=== PATIENT | female | born 1990 | race Caucasian/White ===

== ENCOUNTER 2018-11-25 10:50 | Inpatient (IN) | payer OTHER ==
[~2018-11-25] VITALS: Ht 162.6 cm; Wt 105.0 kg
[2018-12-07] MEDS ORDERED: ZANTAC150 MG PO (05:30)
[2018-12-07] MEDS ORDERED: VITAFOL-OB+DHA1 EACH PO (05:30)
[2018-12-07] MEDS ORDERED: VITAMIN D2000 UNIT PO (05:31)
--- NOTE | 2018-12-07 09:00 | NUR ---
12/07/18 0900 Bebe Miller 0844- PT ARRIVES TO [facility] ROOM 108 FROM OR ON RA WITH SATS 97%. RESP EVEN AND UNALBORED. PT AWAKE AND RESPONSIVE TO VERBAL STIMULUS AND FOLLOWS COMMANDS/ANSWERS QUESTIONS APPROPRIATELY. PT'S SPINAL LEVEL T8. FUNDUS FIRM WITH LIHT BLEEDING NOTED. SURGICAL DRESSING C/D/I. 9682- BABY SKIN TO SKIN ON MOMS CHEST. PT SIPS WATER AND DENIES NAUSEA. SPINAL LEVEL REMAINS AT T-8. FF @ U-1 WITH LIGHT BLEEDING.
--- NOTE | 2018-12-08 11:01 | PR ---
[facility] [address] [facility] [place], [place] [address] Signed PP Progress Notes Datetime Report Generated by CPN: 12/08/2018 11:01 SUBJECTIVE: [id number] Pain: Within normal limits Nausea/Vomiting: Denies Flatus: Yes Bowel Movement: No Vital Signs: [id number] Vital Signs: Reviewed; Within Normal Limits EXAM: [id number] Cardiovascular: Normal Respiratory: Normal Abdomen/Uterus: Normal Lochia: Normal Vulva/Perineum: Not Done Breasts: Normal CVA Tenderness: Normal Extremities: Normal Incision: Normal Progress: Normal Exam Comments: Fundus firm U-2 nontender. Incision well healing w/ alexandre in place IMPRESSION/PLAN/PROCEDURES: [id number] Impression: Normal progression Plan: Continue present management Progress Notes: Pt seen and examined. Doing well. Ambulating, voiding, and tolerating full diet. Pain and lochia minimal. No fevers/chills/lightheadedness. well. No other complaints. Continue routine postop care. Hgb 10.1 Signing Physician: Kali Quan DO Copies: ~ *Electronically Signed* 12/08/18 1101 KALI QUAN DO PATIENT NAME: JELLY SCHAFFER PROGRESS NOTE DATE OF : 86 PHYSICIAN: KALI QUAN DO RPT #: [id number] REPORT IS CONFIDENTIAL AND NOT TO BE RELEASED WITHOUT AUTHORIZATION
--- NOTE | 2018-12-09 08:39 | PR ---
[facility] [address] [place], [place] [address] Signed PP Progress Notes Datetime Report Generated by CPN: 12/09/2018 08:39 SUBJECTIVE: [id number] Pain: Within normal limits Nausea/Vomiting: Denies Flatus: Yes Bowel Movement: Yes Vital Signs: [id number] Vital Signs: Reviewed; Within Normal Limits EXAM: [id number] Cardiovascular: Normal Respiratory: Normal Abdomen/Uterus: Normal Lochia: Normal Vulva/Perineum: Not Done Breasts: Not Done CVA Tenderness: Normal Extremities: Normal Incision: Normal Progress: Normal Exam Comments: Fundus firm U-2 nontender. Incision healing well w/ alexandre in place IMPRESSION/PLAN/PROCEDURES: [id number] Impression: Normal progression Plan: Discharge Progress Notes: Pt seen and examined. Doing well. Ambulating, voiding, and tolerating full diet. Pain and lochia minimal. No fevers/chills/lightheadedness. well. No other complaints. Desires d/c home today. Hgb 10.1. Reviewed d/c instructions in detail. All questions answered. f/U 2 days for staple removal Signing Physician: Kali Quan DO Copies: ~ *Electronically Signed* 12/09/18 0839 KALI QUAN DO PATIENT NAME: JELLY SCHAFFER GUERITA PROGRESS NOTE DATE OF : 86 PHYSICIAN: KALI QUAN DO RPT #: [id number] REPORT IS CONFIDENTIAL AND NOT TO BE RELEASED WITHOUT AUTHORIZATION
--- NOTE | 2018-12-18 08:05 | OR ---
[facility] [address] [place], [place] [address] Signed DATE OF OPERATION: 12/07/2018 SURGEON: Kali Quan DO PREOPERATIVE DIAGNOSES: 1. Term . 2. History of prior . 3. Obesity. 4. Cystic fibrosis carrier. POSTOPERATIVE DIAGNOSES: 1. Term . 2. History of prior . 3. Obesity. 4. Cystic fibrosis carrier. PROCEDURE PERFORMED: Repeat low transverse section. DEMAND MANAGER: Tre Rodgers MD ANESTHESIA: Spinal. ESTIMATED BLOOD LOSS: 500 mL. COMPLICATIONS: None. FINDINGS: Delivery of a viable female , weighing 7 pounds 5 ounces with Apgars 8 and 9. Nuchal cord x1 loose and reduced at delivery. There were scant omental adhesions. Otherwise, normal uterus, tubes, and ovaries and normal lower uterine segment. INDICATION: Ms. Schaffer is a very pleasant 28-year-old G2, P1 female who presents for scheduled repeat low transverse delivery at 39 weeks. is complicated by obesity, chronic BV that has been well controlled, and cystic fibrosis carrier. Her Electronically Signed By: KALI QUAN DO 12/18/18 0805 PATIENT NAME: JELLY SCHAFFER OPERATIVE REPORT DATE OF : 86 REPORT #: [id number] PHYSICIAN: KALI QUAN DO PCP: EVON BARR MD REPORT IS CONFIDENTIAL AND NOT TO BE RELEASED WITHOUT AUTHORIZATION [facility] [address] [place], [place] [address] Signed refused to undergo CF screening and the patient declined screening for CF. The patient was consented for repeat low transverse delivery. Risks, benefits, and alternatives were discussed in detail with the patient. The patient understands and wishes to proceed with the procedure. TECHNIQUE: The patient was taken to the operating room where a time-out was performed to confirm correct patient and correct procedure. Spinal anesthesia was adequately established, and the patient was prepped and draped in the supine position with a bump under her right hip. Coker catheter was inserted. ICPs were on and running, and the patient was given 3 g of heparin preoperatively per SCIP protocol. She also received 5000 units of heparin. Once the patient was prepped, a Pfannenstiel skin incision was made through her prior scar. This was carried down to the fascia. The fascia was nicked with the surgical scalpel just medial of the midline and the rectus muscle was identified. The fascial incision was extended bilaterally using sharp dissection with Carrasquillo scissors. The fascia was grasped with Anjelica's, elevated, and the underlying rectus muscles were dissected off bluntly and sharply. The rectus muscles were then divided bluntly in the midline and the peritoneum was entered bluntly. The peritoneal incision was extended cephalad and caudad using blunt and sharp dissection. Scant omental adhesions were noted well away from the lower uterine segment. Normal lower uterine segment was noted. Tommy self-retractor was then placed without difficulty. Hysterotomy was then performed using a surgical scalpel. Hysterotomy was extended bilaterally using blunt dissection and the amniotic sac was ruptured for clear fluid. The surgeon's hand was placed into the uterine cavity and the head was gently elevated and delivered with the assistance of fundal pressure. Nuchal cord x1 was identified and reduced without difficulty and the remainder of the was delivered with the assistance of fundal pressure. The was vigorous and crying, and the cord was doubly clamped and cut. The was handed off to the waiting pediatric nurse. The cord blood was obtained for routine analysis, and the placenta was expressed intact with a centrally inserted three-vessel cord. The uterus was cleared of any remaining products of conception and clots, and uterus was then repaired using 0 Vicryl in a running locked suture. A second imbricating stitch of 0 Vicryl was applied in a horizontal manner with good hemostasis and imbrication noted. The uterus, tubes, and ovaries were examined and found to be normal. The pelvis was irrigated and found to be hemostatic. The Tommy retractor was removed and the lower segment again identified, and found to be hemostatic. Evicel was applied to the lower uterine segment and ACell sheet was applied to the lower uterine segment. The peritoneum was then reapproximated using 2-0 Vicryl in a running nonlocked manner. The rectus muscles were loosely brought together using interrupted sutures of 0-Vicryl. The rectus muscles were examined and found to be hemostatic. The fascia was reapproximated using 0 Vicryl in a running nonlocked manner. The subcu was made hemostatic with Bovie electrocautery and ACell powder was applied to this as well. The subcu was then reapproximated using Electronically Signed By: KALI QUAN DO 12/18/18 0805 PATIENT NAME: JELLY SCHAFFER OPERATIVE REPORT DATE OF : 86 REPORT #: [id number] PHYSICIAN: KALI QUAN DO PCP: EVON BARR MD REPORT IS CONFIDENTIAL AND NOT TO BE RELEASED WITHOUT AUTHORIZATION [address] [address] Signed Vicryl in a running nonlocked manner. The skin was reinforced with alexandre. The uterus was then Crede'd for a scant amount of blood loss. The patient was taken to the PACU in stable condition. Sponge, needle, and instrument counts correct x2 at the conclusion of procedure. Dr. Rodgers was present and participated in all portions of the procedure. Kali Quan DO JDW/MODL /[id number] Copies: ~ Electronically Signed By: KALI QUAN DO 12/18/18 0805 PATIENT NAME: JELLY SCHAFFER GUERITA OPERATIVE REPORT DATE OF : 86 REPORT #: [id number] PHYSICIAN: KALI QUAN DO PCP: EVON BARR MD REPORT IS CONFIDENTIAL AND NOT TO BE RELEASED WITHOUT AUTHORIZATION
== END 2018-12-09 11:17 | disposition home or self-care (01) | DRG 788 ==
LOC: FBC 12-07 04:54
PROVIDERS: ADMIT Obstetrics & Gynecology
PROC: 10D00Z1 Extraction of Products of Conception, Low, Open Approach (ICD-10-PCS; principal; 2018-12-07 06:45)
DX: O34.211 Maternal care for low transverse scar from previous cesarean delivery (principal); N85.8 Other specified noninflammatory disorders of uterus; Z3A.39 39 weeks gestation of pregnancy; Z37.0 Single live birth; O69.81X0 Labor and delivery complicated by cord around neck, without compression, not applicable or unspecified; O99.214 Obesity complicating childbirth; E66.9 Obesity, unspecified; Z14.1 Cystic fibrosis carrier; Z87.440 Personal history of urinary (tract) infections; Z86.19 Personal history of other infectious and parasitic diseases
CPT/HCPCS: 01961; 36415; 85027; C1763; J0690; J1644; J1650; J1885; J2274; J2300; J2405; J2550; J2590; J7120

== ENCOUNTER → 2020-01-11 | Emergency (ER) | payer OTHER ==
[~2020-01-11] VITALS: Ht 162.6 cm; Wt 104.3 kg
[~2020-01-11] MED LIST: CAL-MAG COMPLE1 EACH PO; VITAFOL-OB+DHA1 EACH PO; VITAMIN D2000 UNIT PO; ZANTAC150 MG PO
--- NOTE | 2020-01-12 07:36 | EKG ---
[facility] [address] [facility] [place], [place] [address] Signed Sinus tachycardia T wave abnormality, consider inferolateral ischemia Abnormal ECG No previous ECGs available Confirmed by TITA LUCAS MD ([id number]) on 01/12/2020 7:36:31 AM Electronically Signed By: TITA LUCAS MD 01/12/20 0736 PATIENT NAME: JELLY SCHAFFER GUERITA Electrocardiogram DATE OF : 86 PHYSICIAN: TITA LUCAS MD REPORT #: [id number] REPORT IS CONFIDENTIAL AND NOT TO BE RELEASED WITHOUT AUTHORIZATION
== END ==
LOC: ED 21:02
DX: F41.9 Anxiety disorder, unspecified (principal); Z87.891 Personal history of nicotine dependence; Z79.899 Other long term (current) drug therapy
CPT/HCPCS: 71046; 80053; 84484; 85025; 85379; 93005; 93010; 99284-25